=== PATIENT | male | born 1950 | race Caucasian/White ===

== ENCOUNTER 2017-07-24 07:55 | Day surgery (SDC) | payer OTHER ==
[~2017-07-24] VITALS: Ht 165.1 cm; Wt 74.5 kg
[2017-07-24 08:59] VITALS: Ht 165.1 cm; Wt 74.5 kg
[2017-07-24 09:33] VITALS: BP 127/73; PULSE 72; RESP 10
--- NOTE | 2017-07-24 10:09 | OPPN ---
Date/Time of Note Date/Time of Note DATE: 07/24/17 TIME: 10:08 Operative Report Preoperative Diagnosis Screening Postoperative Diagnosis Diverticulosis of the colon Internal and external hemorrhoids No colon neoplasm was identified Operation/Procedure Performed Colonoscopy Surgeon see signature line mechanic assistant None Anesthesia: moderate sedation Estimated blood loss: none Transfusion Required none Specimen None Grafts/Implants none Complications none ZARI CHRISTENSEN MD Jul 24, 2017 10:09
[2017-07-24] MEDS ORDERED: MIDAZOLAM 1 MG/ML 2 ML INJ ONE ×2 (10:13)
[2017-07-24] MEDS ORDERED: FENTAnyl 50 MCG/ML VIAL ONE (10:13)
[2017-07-24 10:40] VITALS: BP 117/69; RESP 17
--- NOTE | 2017-07-24 12:37 | GILP ---
DATE OF PROCEDURE: NAME OF PROCEDURE: Colonoscopy. SURGEON: Zari Remy MD PREOPERATIVE DIAGNOSIS: Screening colonoscopy. POSTOPERATIVE DIAGNOSES 1. Colonoscopy all the way to the cecum. 2. Diverticulosis of the colon. 3. Internal hemorrhoids. 4. No colon neoplasm was identified. INDICATION FOR THE PROCEDURE: Mr. Isaiah Diaz is a 67-year-old male patient who was scheduled for screening colonoscopy. The procedure and possible complications are well explained to the patient. The patient understood and consented to the procedure. DESCRIPTION OF PROCEDURE: Under the influence of fentanyl and Versed, the colonoscope was carefully introduced in the rectum and under direct vision, it was advanced all the way to the cecum. FINDINGS: The patient had diverticulosis of the colon. He also had internal hemorrhoids. No colon neoplasm was identified. He tolerated the procedure very well and there was no complication from the procedure. At the end o f the procedure, he was awake with stable vital signs and he was discharged home to the care of his family. IMPRESSION: Please see postoperative diagnosis. PLAN: Next screening colonoscopy in 10 years. Dictated By: ZARI REYNOSO/ALIS Conf#: [id number] DID#: [id number]
== END 2017-07-24 11:27 | disposition home or self-care (01) ==
LOC: GIL 07:55 → MERGE 09:30 → GIL 11:27
PROVIDERS: ATTEND Internal Medicine Gastroenterology
DX: Z12.11 Encounter for screening for malignant neoplasm of colon (principal); K57.90 Diverticulosis of intestine, part unspecified, without perforation or abscess without bleeding; K64.8 Other hemorrhoids
CPT/HCPCS: 45378; J2250; J3010

== ENCOUNTER 2018-01-30 14:45 | Emergency (ER) | END 2018-01-30 16:30 | disposition home or self-care (01) ==

== ENCOUNTER 2018-08-14 23:59 | Emergency (ER) | payer OTHER ==
[~2018-08-14] VITALS: Ht 167.6 cm; Wt 80.1 kg
[~2018-08-14 23:59] MED LIST: IBUP-1542 PO
[2018-08-15 00:04] VITALS: BP 175/88; PULSE 87; RESP 16; Ht 167.6 cm; Wt 80.1 kg
[2018-08-15] MEDS ORDERED: ONDANSETRON 4 MG INJ IV STA (02:11)
[2018-08-15] MEDS ORDERED: SOD CHLORIDE 0.9% 500 ML IV STA (02:11)
[2018-08-15] MEDS ORDERED: MECLIZINE 12.5 MG TAB PO ONE (02:30)
[2018-08-15] MEDS ORDERED: MECL12.574 PO (03:39)
--- NOTE | 2018-08-15 03:48 | ERD ---
ER Documentation Chief Complaint Chief Complaint dizziness since this morning. denies sob/cp HPI This is a very pleasant 68-year-old male complains of dizziness since this morning. Denies shortness of breath or chest pain. Says he feels in the room spinning. Denies any fevers or chills. He says because he feels he has been reading too much from the Bible. He says is been studying intently. Denies suicidal homicidal ideation. Denies auditory or visual hallucinations. ROS All systems reviewed and are negative except as per history of present illness. Medications Home Meds Active Scripts Meclizine Hcl* (Antivert*) 12.5 Mg Tab, 12.5 MG PO Q6H PRN for DIZZINESS, #20 T AB Prov:EVELYN MELLO 08/15/18 Ibuprofen* (Motrin*) 600 Mg Tab, 600 MG PO Q6H PRN for PAIN AND OR ELEVATED TEMP, #30 TAB Prov:GENO NESBITT PURIFICATION DIRECTOR 01/30/18 Reported Medications [None] No Conflict Check 07/24/17 Allergies Allergies: Coded Allergies: aspirin (Verified Adverse Reaction, Intermediate, STOMACH PAIN/BLEEDING, 07/24/17) PMhx/Soc Medical and Surgical Hx: pt denies Medical Hx, pt denies Surgical Hx History of Surgery: Yes (OPA BILAT KNEES) Anesthesia Reaction: No Hx Neurological Disorder: No Hx Respiratory Disorders: Yes (BRONCHITIS 2012) Hx Cardiac Disorders: No (HAD HIGH CHOL, BORDERLINE NOW) Hx Psychiatric Problems: No Hx Miscellaneous Medical Probl: No Hx Alcohol Use: No Hx Substance Use: No Hx Tobacco Use: No Smoking Status: Never smoker Physical Exam Vitals Vital Signs Date Temp Pulse Resp B/P (MAP) Pulse Ox O2 O2 Flow FiO2 Time Delivery Rate 08/15/18 97.1 82 16 149/87 99 Room Air 02:11 (107) 08/15/18 98.0 87 16 175/88 97 00:04 (117) Physical Exam Const: No acute distress Head: Atraumatic Eyes: Normal Conjunctiva ENT: Normal External Ears, Nose and Mouth. Neck: Full range of motion. No meningismus. Resp: Clear to auscultation bilaterally Cardio: Regular rate and rhythm, no murmurs Abd: Soft, non tender, non distended. Normal bowel sounds Skin: No petechiae or rashes Back: No midline or flank tenderness Ext: No cyanosis, or edema Neur: Awake and alert Psych: Normal Mood and Affect Result Diagram: 08/15/18 0230 08/15/18 0230 Results 24 hrs Laboratory Tests Test 08/15/18 02:30 White Blood Count 8.5 10^3/ul Red Blood Count 4.98 10^6/ul Hemoglobin 16.4 g/dl Hematocrit 46.8 % Mean Corpuscular Volume 94.0 fl Mean Corpuscular Hemoglobin 32.9 pg Mean Corpuscular Hemoglobin Concent 35.0 g/dl Red Cell Distribution Width 11.7 % Platelet Count 212 10^3/UL Mean Platelet Volume 10.8 fl Immature Granulocytes % 0.200 % Neutrophils % 63.8 % Lymphocytes % 21.2 % Monocytes % 12.2 % Eosinophils % 1.9 % Basophils % 0.7 % Nucleated Red Blood Cells % 0.0 /100WBC Immature Granulocytes # 0.020 10^3/ul Neutrophils # 5.4 10^3/ul Lymphocytes # 1.8 10^3/ul Monocytes # 1.0 10^3/ul Eosinophils # 0.2 10^3/ul Basophils # 0.1 10^3/ul Nucleated Red Blood Cells # 0.0 10^3/ul Prothrombin Time 12.9 Sec Prothrombin Time Ratio 1.0 INR International Normalized Ratio 0.96 Activated Partial Thromboplast Time 28.4 Sec Sodium Level 142 mmol/L Potassium Level 4.5 mmol/L Chloride Level 106 mmol/L Carbon Dioxide Level 30 mmol/L Anion Gap 6 Blood Urea Nitrogen 9 mg/dl Creatinine 0.89 mg/dl Est Glomerular Filtrat Rate mL/min > 60 mL/min Glucose Level 113 mg/dl Calcium Level 9.7 mg/dl Troponin I < 0.012 ng/ml Current Medications Medications Dose Sig/Mp Start Time Status Last (Trade) Ordered Route PRN Stop Time Admin Dose Reason Admin Sodium 500 ml @ Q1H STAT 08/15/18 DC 08/15/18 Chloride 500 mls/hr IV 02:11 08/15/18 02:38 03:10 Ondansetron 4 mg ONCE STAT 08/15/18 DC 08/15/18 HCl (Zofran IV 02:11 08/15/18 02:38 Inj) 02:12 Meclizine 25 mg ONCE ONCE 08/15/18 DC 08/15/18 HCl PO 02:30 08/15/18 02:38 (Antivert) 02:31 Procedures/MDM EKG: Rate/Rhythm: [Normal Sinus Rhythm] QRS, ST, T-waves: [No changes consistent w/ acute ischemia] Impression: [No evidence of ischemia or arrhythmia] Chest X-ray 1V Interpreted by me: Soft Tissue: No acute abnormalities Bones: No acute abnormalities Mediastinum/Cardiac Silhouette/Lungs: [No acute abnormalities] Medical decision making: Very pleasant patient here with dizziness. He is improved with meclizine and fluids. Patient will be discharged home. Told to return for worsening symptoms. Departure Diagnosis: Primary Impression: Dizziness Condition: Stable Patient Instructions: Dizziness, Unk Cause EVELYN MELLO Aug 15, 2018 03:48
== END 2018-08-15 05:22 | disposition home or self-care (01) ==
LOC: E/R 23:59
DX: R42 Dizziness and giddiness (principal); R07.9 Chest pain, unspecified
CPT/HCPCS: 36415; 70450; 71045; 80048; 84484; 85025; 85610; 85730; 93005; 96374; 99285; J2405; J7040